=== PATIENT | female | born 1950 | race Caucasian/White ===

== ENCOUNTER → 2016-05-29 | Day surgery (SDC) | payer MEDICARE, BC ==
[~2016-05-29] MED LIST: ASPIRIN EC81 M1 PO; FISH OIL 1,0001 EAC4 PO; KEFLEX500 MG PO; METOPROLOL SUCC50 MG PO; PROTONIX; VITAMIN D PO
--- NOTE | ~2016-05-29 | OR ---
Unit #: [id number] #: [id number] Patient: JAD ZAMAN [id number] [address] [address] [id number] O MR#: [id number] NAME: JAD ZAMAN ROOM: Date of Procedure: 05/29/2016 Admission Date: 05/29/2016 Surgeon: Noble Campos M.D. : 1950 Attending Physician: Noble Campos M.D. Primary Care Physician: Clarissa Hooker M.D. OPERATIVE REPORT JOB NOTE: VERIFY PATIENT DETAILS. PRIMARY CARE PHYSICIAN Clarissa Hooker M.D. PREOPERATIVE DIAGNOSES The patient has presented with history of noncardiac chest pain, an epigastric pain, and retrosternal heartburn. In addition, she needs a screening colonoscopy. She has no family history of colon cancer. PROCEDURES PERFORMED Upper gastrointestinal endoscopy and biopsy as well as colonoscopy up to cecum and terminal ileum with excellent preparation and good visualization. POSTOPERATIVE DIAGNOSES For upper endoscopy: 1. The patient has mild distal erosive esophagitis of grade 1 severity. 2. Mild prepyloric antral gastritis. 3. Mild focal patchy erosive duodenitis. 4. Rest of examination up to third part of duodenum was normal. Biopsy was obtained from the antrum for CLOtest. For colonoscopy: Mild sigmoid and descending colon diverticulosis. Otherwise, examination was normal up to cecum and terminal ileum. The quality of the prep was excellent. No polyps were seen. RECOMMENDATIONS 1. Pantoprazole 40 mg p.o. daily. 2. The patient will be followed up in the office in 3 months' time. SEDATION USED MAC. DESCRIPTION OF PROCEDURE Following detailed explanation of potential risks and complications of an upper endoscopy and a colonoscopy, namely perforation, bleeding, and complication related to sedation, the patient was brought to GI lab and laid in the left lateral decubitus position. Lubricated tip of the Olympus video upper endoscope was passed through the bite block into the proximal esophagus under direct vision. The entire esophageal mucosa was examined. The patient was noted to have grade 1 distal erosive esophagitis with erosions at the Z-line. The scope was then advanced into the gastric cavity and the latter was insufflated. Mucosa of the fundus, Unit #: [id number] #: [id number] Patient: JAD ZAMAN body, and antrum was examined and mild prepyloric antral erythema erosions were noted indicating antral gastritis. Pylorus was intubated with visualization of the duodenal bulb. The latter was noted to have mild focal patchy erosive duodenitis. Second and third part of the duodenum were normal. Upon withdrawal and retroflexion, incisura, cardia, and greater curve was examined and biopsy was obtained from the antrum for CLOtest. The scope was then withdrawn in the distal esophagus. The entire esophageal mucosa was examined all the way up to pharynx. No additional findings were noted. The examination table was then turned by 180 degrees and the patient positioned for a colonoscopy. A digital rectal examination was performed, which was normal. Lubricated tip of the Olympus video colonoscope was inserted through the anus and advanced under direct vision. The scope was advanced past rectosigmoid into descending colon. Multiple small diverticula were seen in this area. The scope tip was then navigated all the way up to cecum with visualization of the ileocecal valve and the appendiceal orifice. Preparation was excellent with good visualization and photodocumentation was obtained. Successive segments of the colonic mucosa were examined upon withdrawal and appeared unremarkable. There being no polyps, mass lesions, or AVMs. Other than the scant diverticula seen in the left side, no other abnormalities were noted. The patient did not have any hemorrhoids at the anal verge. The scope was then withdrawn and the patient returned to the recovery area. She tolerated the procedure without any postprocedure complications. Dictated by... Jo Ann Hannon TD: 05/30/2016 02:18 JOB #: [id number] OPERATIVE REPORT Page 1 of 1 X Noble Campos MD X PROCEDURE OPERATIVE NOTE
== END | disposition home or self-care (01) ==
LOC: COPS 09:40
DX: K20.8 Other esophagitis (principal); K29.80 Duodenitis without bleeding; K29.70 Gastritis, unspecified, without bleeding; Z12.11 Encounter for screening for malignant neoplasm of colon; K57.30 Diverticulosis of large intestine without perforation or abscess without bleeding; R12 Heartburn; I10 Essential (primary) hypertension; Z90.710 Acquired absence of both cervix and uterus
CPT/HCPCS: 43239; G0121; 87077; J2250

== ENCOUNTER → 2016-06-08 | Outpatient (CLI) | payer MEDICARE, BC ==
--- NOTE | ~2016-06-08 | MY11 ---
[facility] A Service [facility] RADIOLOGY TEXT RESULTS PATIENT: JAD ZAMAN LOCATION: [facility] : 46 UNIT #: [id number] AGE: [address]: Clarissa Hooker MD SEX: F ORDER DR: [id number] [facility]. [place], [place] [address] [id number] O MR#: [id number] Acc #: [id number] NAME: JAD ZAMAN. : 1950 SEX: F STUDY DATE/TIME: 06/08/2016 12:57 UNIT: [facility] ROOM: STUDY DESCRIPTION: MY Mammogram Screening Dig Jean Attending Physician: Clarissa Hooker M.D. Ordering Physician: Clarissa Hooker M.D. Primary Care Physician: Clarissa Hooker M.D. MEDICAL IMAGING REPORT This report is preliminary unless electronic signature is present EXAM Digital screening mammograms 06/08/2016. HISTORY A 65-year-old woman positive family history, mother and 2 sisters. Previous right breast biopsy. Annual screening. COMPARISON STUDIES mammograms date to 05/02/2007 with most recent 05/27/2015. FINDINGS Digital imaging of each breast was completed utilizing screening protocol. Biopsy marker was placed right inferomedial periareolar location. Review includes FDA-approved CAD device. The breast parenchyma is partially fatty replaced with a residual fibroglandular opacities in each breast. Overall appearance is stable. I see no developing mass or interval occurring microcalcifications and no architectural deformity. IMPRESSION Negative mammogram. Annual screening recommended. BIRADS 1 Patients over the age of 40 are entered into a reminder system with target due date for the next mammogram. A result letter will also be sent to the patient. BIRADS: 1 Negative [facility] A Service [facility] RADIOLOGY TEXT RESULTS PATIENT: JAD ZAMAN LOCATION: [facility] : 46 UNIT #: [id number] AGE: [address]: Clarissa Hooker MD SEX: F ORDER DR: Dictated by... Naresh Burciaga M.D. THIS IS AN ELECTRONICALLY VERIFIED REPORT Naresh Burciaga M.D. at 06/08/2016 3:10 PM SHMUEL/suresh TD: 06/08/2016 14:45 JOB #: [id number] MEDICAL IMAGING REPORT Page 1 of 1 COPY
== END | disposition home or self-care (01) ==
LOC: CWCC 12:34
DX: Z12.31 Encounter for screening mammogram for malignant neoplasm of breast (principal); Z80.3 Family history of malignant neoplasm of breast; Z98.890 Other specified postprocedural states
CPT/HCPCS: G0202

== ENCOUNTER 2016-09-15 20:01 | Emergency (ER) | payer MEDICARE, BC ==
[~2016-09-15] VITALS: Ht 149.9 cm; Wt 54.4 kg
[~2016-09-15 20:01] MED LIST changes: -KEFLEX500 MG PO; -PROTONIX
[2016-09-15] MEDS ORDERED: PROTONIX (20:17)
[2016-09-15 20:26] LABS: URINE SOURCE CLEAN CATCH
[2016-09-15 20:28] LABS: URINE APPEARANCE CLOUDY; URINE BLOOD 3+ (NEG); URINE COLOR BROWN; URINE GLUCOSE NEG (NORM); URINE KETONE TRACE (NEG); URINE LEUKOCYTE ESTERASE 3+ (NEG); URINE NITRATE POS (NEG); URINE PH 6.5 (5-8); URINE PROTEIN 3+ (NEG); URINE SPECIFIC GRAVITY 1.025 (1.003-1.035)
[2016-09-15 20:29] LABS: URINE BILIRUBIN NEG (NEG)
[2016-09-15 20:30] LABS: MICRO INDICATED? YES
[2016-09-15 20:36] LABS: URINE BACTERIA 1+ (NEG); URINE MUCUS PRESENT; URINE RBC INNUM /[HPF] (0-2); URINE SQUAMOUS EPITHELIAL CELL MODERATE /[HPF]; URINE TRANSITIONAL EPI CELLS OCCAS /[HPF]; URINE WBC INNUM /[HPF] (0-5)
[2016-09-15] MEDS ORDERED: KEFLEX500 MG PO (21:02)
== END 2016-09-15 21:27 | disposition home or self-care (01) ==
LOC: SED 20:01
PROVIDERS: Emergency Medicine
DX: N39.0 Urinary tract infection, site not specified (principal); I10 Essential (primary) hypertension; Z90.710 Acquired absence of both cervix and uterus; Z79.899 Other long term (current) drug therapy
CPT/HCPCS: 81003; 99283